=== PATIENT | male | born 1945 | race Caucasian/White ===

== ENCOUNTER 2020-11-08 07:51 | Emergency (ER) | payer MEDICARE, OTHER ==
[2020-11-08] MEDS ORDERED: ERYTHROMYCIN O3.5 GM OU (08:45)
== END 2020-11-08 09:35 | disposition home or self-care (01) ==
LOC: ER1 07:51
DX: T15.01XA Foreign body in cornea, right eye, initial encounter (principal); W22.8XXA Striking against or struck by other objects, initial encounter; Y92.009 Unspecified place in unspecified non-institutional (private) residence as the place of occurrence of the external cause
CPT/HCPCS: 65220; 99283

== ENCOUNTER → 2021-12-25 | Outpatient (CLI) | payer MEDICARE, OTHER ==
[~2021-12-25] MED LIST: ERYTHROMYCIN O3.5 GM OU
== END ==
LOC: KOH-I 14:00
DX: R10.32 Left lower quadrant pain (principal); R10.2 Pelvic and perineal pain; K57.32 Diverticulitis of large intestine without perforation or abscess without bleeding
CPT/HCPCS: 74176

== ENCOUNTER → 2022-02-06 | Outpatient (CLI) | payer MEDICARE, OTHER | LOC: RT 12:36 | DX: Z01.810 Encounter for preprocedural cardiovascular examination (principal) | CPT/HCPCS: 93005 ==